=== PATIENT | female | born 1970 | race Caucasian/White ===

== ENCOUNTER 2018-10-25 12:34 | Emergency (ER) | payer MEDICAID ==
[2018-10-25] MEDS: FLUORESCEIN STRIP LEFT EYE (13:36)
[2018-10-25] MEDS: TETRACAINE 0.5% 4 ML OPH LEFT EYE (13:36)
== END 2018-10-25 14:35 | disposition home or self-care (01) ==
LOC: FTE 12:34
DX: H57.89 Other specified disorders of eye and adnexa (principal); R05 Cough
CPT/HCPCS: 99283; Z7502